=== PATIENT | female | born 1965 | race Caucasian/White ===

== ENCOUNTER 2019-03-21 11:49 | Day surgery (SDC) | payer BC ==
[2019-03-21] MEDS: SOD CHLORIDE 0.9% 1,000 ML IV (13:12)
[2019-03-21] MEDS ORDERED: GLYCOPYRROLATE 0.4 MG INJ (14:57)
[2019-03-21] MEDS ORDERED: PROPOFOL 20 ML (14:57)
[2019-03-21] MEDS ORDERED: NEOSTIGMINE 3 MG/3 ML SYRINGE (14:57)
[2019-03-21] MEDS ORDERED: ROCURONIUM 50 MG INJ (14:57)
[2019-03-21] MEDS ORDERED: CEFAZOLIN 1 GM INJ (14:57)
[2019-03-21] MEDS ORDERED: MIDAZOLAM 1 MG/ML 2 ML INJ (14:58)
[2019-03-21] MEDS ORDERED: DEXAMETHASONE 4 MG/ML 5 ML INJ (14:58)
[2019-03-21] MEDS ORDERED: ONDANSETRON 4 MG INJ (14:58)
[2019-03-21] MEDS ORDERED: FENTAnyl 50 MCG/ML VIAL (14:58)
[2019-03-21] MEDS ORDERED: morphine 2 MG INJ IV (15:00)
[2019-03-21] MEDS ORDERED: ONDANSETRON 4 MG INJ IV (15:00)
[2019-03-21] MEDS ORDERED: HYDROCODONE/APAP (5/325) TAB PO (15:00)
[2019-03-21] MEDS ORDERED: GENTAMICIN 80 MG INJ (15:22)
[2019-03-21] MEDS: POLYMYXIN/BACITRACIN 1L IRRIG (15:42)
[2019-03-21] MEDS: BUPIVACAINE 0.25%/EPI (SDV) 30 ML INJ (15:42)
[2019-03-21] MEDS ORDERED: IPRATROPIUM (NEB) 0.5 MG/2.5 ML AMP HHN (16:00)
[2019-03-21] MEDS ORDERED: EPHEDrine SULFATE 50 MG/5 ML SYG IV (16:00)
[2019-03-21] MEDS ORDERED: FENTAnyl 50 MCG/ML VIAL IV ×2 (16:00)
[2019-03-21] MEDS ORDERED: HYDROmorphONE 1 MG/5 ML IV SYRINGE IV ×3 (16:00)
[2019-03-21] MEDS ORDERED: ALBUTEROL 0.083% (NEB) 2.5 MG/3 ML AMP HHN (16:00)
[2019-03-21] MEDS ORDERED: LABETALOL HCL 20MG INJ IV (16:00)
[2019-03-21] MEDS ORDERED: TRIMETHOBENZAMIDE 100 MG/ML VIAL IM (16:00)
[2019-03-21] MEDS ORDERED: DIPHENHYDRAMINE 50 MG INJ IV (16:00)
[2019-03-21] MEDS ORDERED: hydrALAzine 20 MG INJ IV (16:00)
[2019-03-21] MEDS ORDERED: MIDAZOLAM 1 MG/ML 2 ML INJ IV (16:00)
[2019-03-21] MEDS ORDERED: OXYCODONE/ACETAMINOPHEN (5/325) TAB PO (16:00)
[2019-03-21] MEDS ORDERED: POLYMYXIN/BACITRACIN 1L IRRIG (16:22)
[2019-03-21] MEDS ORDERED: POLYMYXIN B 500000 UNIT INJ (16:24)
[2019-03-21] MEDS: BUPIVACAINE LIPOSOME/PF 266 MG/20 ML VIAL INFIL (16:46)
[2019-03-21] MEDS ORDERED: SUGAMMADEX SODIUM 200 MG/2 ML VIAL IV (17:00)
[2019-03-21] MEDS: MEPERIDINE 25 MG INJ IV (17:35)
[2019-03-21] MEDS: ONDANSETRON 4 MG INJ IV (17:35)
[2019-03-21] MEDS: FENTAnyl 50 MCG/ML VIAL IV (17:36)
[2019-03-21] MEDS: OXYCODONE/ACETAMINOPHEN (5/325) TAB PO (18:03)
== END 2019-03-21 19:00 | disposition home or self-care (01) ==
LOC: SDS 11:49
DX: F64.8 Other gender identity disorders (principal)
CPT/HCPCS: 19340